=== PATIENT | male | born 2000 | race Caucasian/White ===

== ENCOUNTER 2021-11-13 10:18 | Day surgery (SDC) | payer OTHER ==
[~2021-11-13] VITALS: Ht 170.2 cm; Wt 65.5 kg
[2021-11-13] MEDS ORDERED: BENTYL 20MG20 MG/TAB PO (11:41)
[2021-11-13] MEDS ORDERED: PROTONIX 40MG T40 MG PO (11:42)
[2021-11-13] MEDS ORDERED: NAPROSYN500 MG PO (11:43)
[2021-11-13 11:49] VITALS: BP 128/86; PULSE 89; TEMP 98.4
[2021-11-13 13:55] VITALS: BP 105/69; PULSE 74; TEMP 97.3
--- NOTE | 2021-11-13 13:55 | NUR ---
Pt arrived from endo suite, drowsy. He was assisted to the chair from the cart by + RN's. Vitals obtained. Verbal report obtained. Warm blanket provided. Call [facility] is on his lap. Lights dimmed to provide comfort. Patient requested ice water to drink.
--- NOTE | 2021-11-13 14:10 | NUR ---
Vitals obtained. Pt is tolerating ice water well and requested a warm muffin to eat. Call medina remains within reach.
[2021-11-13 14:15] VITALS: BP 103/72; PULSE 88
[2021-11-13 14:25] VITALS: BP 108/78; PULSE 64
--- NOTE | 2021-11-13 14:25 | NUR ---
Vitals obtained. Call medina remains within reach on his lap.
[2021-11-13 14:40] VITALS: BP 101/85; PULSE 68
--- NOTE | 2021-11-13 14:40 | NUR ---
Vitals obtained. The patient expressed desire to be discharged and said his ride is on the way.
[2021-11-13 15:10] VITALS: BP 120/67; PULSE 73
--- NOTE | 2021-11-13 15:10 | NUR ---
Vitals obtained. IV discontinued. Catheter tip intact. Pressure dressing applied. DC instructions and educational material was reviewed with the patient, who verbalized understanding and signed the related paperwork. The patient denied needing assistance changing into his personal clothes.
--- NOTE | 2021-11-13 15:35 | NUR ---
Pt was dismissed from unit via wheelchair by GONZALO Carlos to the patient entrence and transferred into the care of his friend Kale, who is present to drive. Pt has his DC packet in hand and personal belongings
== END 2021-11-13 15:40 | disposition home or self-care (01) ==
LOC: SDCO 10:18
DX: K52.89 Other specified noninfective gastroenteritis and colitis (principal); K56.699 Other intestinal obstruction unspecified as to partial versus complete obstruction; R19.4 Change in bowel habit; Z79.899 Other long term (current) drug therapy
CPT/HCPCS: J2704; J7030